=== PATIENT | female | born 1990 | race Caucasian/White ===

== ENCOUNTER 2023-01-14 14:28 | Emergency (ER) | payer OTHER ==
[~2023-01-14] VITALS: Ht 162.6 cm; Wt 59.0 kg
[2023-01-14] MEDS ORDERED: ELIMC TP (14:50)
[2023-01-14] MEDS ORDERED: DIPH25TA39 PO (14:51)
[2023-01-14 14:53] VITALS: BP 111/77; PULSE 95; RESP 18; TEMP 98; O2SAT 98
--- NOTE | 2023-01-14 15:12 | NUR ---
Patient discharged with v/s stable. Written and verbal after care instructions FOR SC[facility] given and explained. Patient alert, oriented and verbalized understanding of instructions. Ambulatory with STEADY GAIT. All questions addressed prior to discharge. ID band removed. Patient advised to follow up with PMD. Rx of PERMETHRIN AND BENADRYL given. Opportunity to ask questions provided and answered.
[2023-01-14 15:32] VITALS: O2SAT 98
--- NOTE | 2023-01-14 15:33 | NUR ---
The patient's care was reviewed and supervised by Thorndike 05 YAYA, RN.
== END 2023-01-14 15:12 | disposition home or self-care (01) ==
LOC: MED 14:28
DX: B86 Scabies (principal); Z79.899 Other long term (current) drug therapy
CPT/HCPCS: 99282